=== PATIENT | male | born 1940 | race Caucasian/White ===

== ENCOUNTER 2019-10-02 14:35 | Outpatient (CLI) | payer MEDICARE, SELFPAY ==
--- NOTE | ~2019-10-02 | CT_ITS ---
EXAMINATION: CT abdomen wo con DATE: 10/02/2019 15:26 INDICATION: Trauma hernia without obstruction. TECHNIQUE: Computed tomography (CT) of the abdomen was performed without intravenous contrast. The do se-length product was 495.50 mGy-cm. Automated exposure control and iterative reconstruction techniqu e were employed. COMPARISON: None. FINDINGS: There are scattered peripheral interlobular septal thickening in the lung bases with areas of honeycombing in the left lower lobe, consistent with chronic fibrosis. Heart size normal. There is atherosclerosis of the aorta and coronary arteries. Small supraumbilical fat-containing hernia. Small fat-containing umbilical hernia. The liver, spleen, pancreas, adrenal glands and kidneys are unremarkable. No renal stones or hydronep hrosis. Gallbladder is present. There is severe lumbar spondylosis. There is anterior endplate compre ssion deformity of L1, likely chronic. IMPRESSION: 1. Fat-containing supraumbilical and umbilical ventral hernias. 2: Chronic pulmonary fibrosis in the lung bases. Reviewed, dictated and finalized at location A.
== END 2019-10-02 14:36 | disposition home or self-care (01) ==
PROVIDERS: PCP Family Medicine; Visit Provider Surgery
DX: K43.9 Ventral hernia without obstruction or gangrene (principal); K42.9 Umbilical hernia without obstruction or gangrene
CPT/HCPCS: 74150

== ENCOUNTER 2019-10-12 10:06 | Outpatient (CLI) | payer MEDICARE, SELFPAY ==
--- NOTE | 2019-10-12 10:07 | ECG_ITS ---
Measurements Intervals [place]son Rate: 59 P: 7 MS: 237 QRS: -18 QRSD: 82 T: -4 QT: 403 QTc: 400 Interpretive Statements SINUS BRADYCARDIA WITH FIRST DEGREE AV BLOCK LOW QRS VOLTAGE IN PRECORDIAL LEADS BORDERLINE R WAVE PROGRESSION, ANTERIOR LEADS CONSIDER INFERIOR INFARCT, AGE INDETERMINATE BASELINE ARTIFACT- I, II, III, AVR, AVL, AVF ABNORMAL ECG Electronically Signed On 10-12-2019 10:31:15 CDT by Nathanael Crouch D.O.
== END 2019-10-12 10:07 | disposition home or self-care (01) ==
LOC: ANHSURGERY 10:07
PROVIDERS: PCP Family Medicine; Visit Provider Surgery
DX: Z01.818 Encounter for other preprocedural examination (principal); R00.1 Bradycardia, unspecified; K43.9 Ventral hernia without obstruction or gangrene; E78.2 Mixed hyperlipidemia; I44.0 Atrioventricular block, first degree
CPT/HCPCS: 36415; 86850; 86900; 86901; 93005

== ENCOUNTER 2019-10-13 00:26 | Outpatient (CLI) | payer MEDICARE, SELFPAY ==
[2019-10-13 18:58] LABS: SARS-CoV-2 RNA PCR Negative
== END 2019-10-13 00:27 | disposition home or self-care (01) ==
LOC: ANHCOVIDDT 00:27
PROVIDERS: PCP Family Medicine; Visit Provider Surgery
DX: Z01.818 Encounter for other preprocedural examination (principal); Z11.59 Encounter for screening for other viral diseases
CPT/HCPCS: 87635; C9803; U0003

== ENCOUNTER 2019-10-15 00:49 | Day surgery (SDC) | payer MEDICARE, SELFPAY ==
[2019-10-09 08:36] VITALS: BMI 30.4
[2019-10-15] VITALS (9 sets, daily range): BP systolic 127–144; BP diastolic 63–75; PULSE 58–72; RESP 12–18; TEMP 36.1–36.5; O2SAT 93–100
--- NOTE | 2019-10-15 09:51 | WPDHPUPDATE1 ---
History and Physical Update Update Date/Time: 10/15/19 09:51 History and Physical has been reviewed, including an updated exam of the patient. There are NO changes in the patient's condition. Risks, benefits, and alternatives have been discussed and questions answered. Patient agrees to proceed with procedure.
[2019-10-15] MEDS: LACTATED RINGERS 1,000 ML 30 ML IV CONT ×2 (10:00→13:31)
--- NOTE | 2019-10-15 10:22 | WPDANESEPPF ---
Anes - Initial Pre Proc Eval Procedure: Operation Date: 10/15/19 11:00 Proposed Procedures p Robotic Assisted Ventral Hernia Repair with Mesh - Vanesa Aguilera MD Date/Time: 10/15/19 10:22 Surgeon: Vanesa Aguilera MD Pre Op Diagnosis: ventral hernia Patient Data Age: 79 Gender: M Height: 5 ft 8 in Weight: 90.9 kg Allergies Allergy/AdvReac Type Severity Reaction Status Date / Time cat dander Allergy Unknown runny nose Verified 09/30/19 08:39 Home Medications Medication Instructions Recorded Confirmed Type aspirin 325 mg tablet,delayed 325 mg PO HS 05/08/19 10/09/19 History release diclofenac sodium 75 mg 75 mg PO BID #180 tablet 08/13/19 10/09/19 Rx tablet,delayed release atorvastatin 10 mg PO HS 10/09/19 10/09/19 History garlic 500 mg PO DAILY 10/09/19 10/09/19 History multivitamin 1 tablet PO DAILY 10/09/19 10/09/19 History Patient hx anesthesia problems: none Family hx anesthesia problems: none PMFSH Past Medical History Medical History (Updated 10/15/19 @ 10:23 by Christopher Gaston MD) Neuropathy Surgical History Surgical History H/O colonoscopy H/O hernia repair inguinal hernia with mesh 2005 History of hip replacement right 2018 History of knee replacement right 2007 Family History Family History Father Diabetes mellitus Family history of cardiovascular disease Malignant neoplasm of prostate Heart disease Mother Family history of cardiovascular disease Other Family history of arthritis Social History Social History Smoking status: Current every day smoker Smoking end date: 05/06/70 Alcohol intake: current Anes - Eval Final PreProcedure Day of Procedure 10/15/19 10:22 Patient weight: obese Heart: regular rate and rhythm Lungs: decreased breath sounds Airway: Mallampati scale class II Neurological: other (alert) Last oral intake: >/= 8 hours ASA classification: III Emergent: no Anesthetic plan: proceed Anesthesia type and monitoring: general ETT and standard monitoring Informed Consent: The patient's anesthetic plan and its attendant risks and benefits were discussed with the patient/family/POA. Questions were solicited and answers provided to the satisfaction of the patient/family/POA.
[2019-10-15] MEDS: ceFAZolin 2 GM/D5W 50 ML 2 GM/50 ML BAG IVPB (11:00)
[2019-10-15] MEDS: BUPIVACAINE/EPINEPHRINE 0.5% 30 ML VIAL INFILTRATE (12:25)
--- NOTE | 2019-10-15 13:23 | PM.PROC ---
Procedure Note - Detailed Date of procedure: 10/15/19 Pre-op diagnosis: ventral hernia Supraumbilical ventral hernia, umbilical hernia Post-op diagnosis: same Procedure performed: robotic assisted repair of supraumbilical ventral hernia and umbilical hernia with 15 x 10 cm mesh in underlay position Description of procedure: The patient was taken the operating room placed in the supine position. After adequate induction of general anesthesia, the patient was prepped and draped in normal sterile fashion. A time-out was then done to verify the patient's identity as well as the procedure being performed. I began by making a 5 mm incision in the left upper quadrant. Through this, a Veress needle was placed into the peritoneal cavity and CO2 gas was insufflated. After adequate pneumoperitoneum was achieved, a 5 mm trocar was placed through this incision. I then placed the laparoscope through this trocar site and under direct visualization I placed a 8 mm port in the left mid abdomen as well as an additional 8 mm port in the left lower abdomen. I then moved the camera to the lower port and replaced the 5 mm port with a 12 mm airport. The robot was then docked to the 3 port sites. I then went to the robotic console. I began by identifying the hernias. A moderate-sized hernia was noted in the supraumbilical region and a smaller hernia was noted at the umbilicus. Using graspers, I was able to reduce both these hernias. Both hernias were noted to just contain preperitoneal fat. Once reduced, I closed both defects with 0 strata fix suture. I then placed a 15 x 10 cm symbotex mesh into the abdominal cavity. The Vicryl stitch was placed in the middle of the mesh and brought up centering the mesh over the defects. Once this was done, I used 2 0 V lock suture to circumferentially suture the mesh to the abdominal. Once the mesh was completely sutured in, I was happy with our tension-free repair. The mesh was noted to have good overlap of both the defects. At this point, the robot was undocked and all ports were removed. I then closed the 12 mm port site with an 0 Vicryl [id number] suture at the fascial level. All port sites were then closed with 4 O Monocryl subcuticular suture. The patient tolerated the procedure well, is extubated in the operating room postoperative, OB transferred to the recovery room in stable condition. Implants: 15 x 10 symbotex mesh Anesthesia: GETA Surgeon: Vanesa Aguilera MD Estimated blood loss (mL): 10 Drains: No Packing: No Pathology: none sent Complications: No immediate complications Condition: stable Disposition: PACU Findings: fat containing supraumbilical ventral hernia and fat containing umbilical hernia
--- NOTE | 2019-10-15 15:46 | SUR.PHASEII ---
PT'S UPDATED. IS EN ROUTE. PT HAVING MORE ABDOMINAL PAIN TO UPPER RIGHT ABDOMEN WHILE TRYING TO SIT UP TO GET DRESSED. AWAITING PAIN MED TO TAKE EFFECT.
--- NOTE | 2019-10-15 16:38 | SUR.PHASEII ---
PT ABLE TO TRANSFER TO WHEELCHAIR WITH MINIMAL ASSISTANCE. VOIDED X 1.
== END 2019-10-15 16:39 | disposition home or self-care (01) ==
PROVIDERS: PCP Family Medicine; Visit Provider Surgery
PROC: (CPT 49652; principal; 2019-10-15 11:00)
DX: K43.9 Ventral hernia without obstruction or gangrene (principal); K42.9 Umbilical hernia without obstruction or gangrene; E66.9 Obesity, unspecified; Z68.30 Body mass index [BMI] 30.0-30.9, adult; F17.200 Nicotine dependence, unspecified, uncomplicated; Z96.651 Presence of right artificial knee joint; Z96.641 Presence of right artificial hip joint
CPT/HCPCS: 49652 ×2; S2900; 36415; 86850; 86900; 86901; 87635; 93005; A9270; C1781; C9803; J0330; J0690; J1100; J1170; J2405; J2704; J2710; J3010; J7030; J7120; U0003

== ENCOUNTER → 2021-03-31 11:09 | Outpatient (CLI) | payer MEDICARE, SELFPAY ==
--- NOTE | ~2021-03-31 | XR_ITS ---
XR lumbar spine min 4V 03/31/2021 11:30 Indication: Low back pain Procedure: 5 views lumbar spine Comparison: Lumbar spine series 09/05/[address] dated 10/02/2019 Findings: There is a chronic mild wedge compression fracture of L1. There is advanced degenerative di sc disease at all lumbar levels. There is grade 1 degenerative spondylolisthesis at L4-5. There is fa cet hypertrophy at L3-4, L4-5 and L5-S1 . There is a right hip arthroplasty. There is mild levocurvat ure of the lumbar spine. Impression: 1: Severe lumbar spondylosis. 2: Chronic wedge compression deformity of L1. Reviewed, dictated and finalized at location A. FACTURING CLERK Impression: 1: Severe lumbar spondylosis. 2: Chronic wedge compression deformity of L1.
== END ==
PROVIDERS: PCP Family Medicine; Visit Provider Family Medicine
DX: M47.896 Other spondylosis, lumbar region (principal)
CPT/HCPCS: 72110

== ENCOUNTER → 2021-04-08 01:13 | Outpatient (CLI) | payer MEDICARE, SELFPAY ==
[2021-04-08 18:54] LABS: SARS-CoV-2 RNA PCR Negative
== END ==
PROVIDERS: PCP Family Medicine; Visit Provider Family Medicine
DX: R09.89 Other specified symptoms and signs involving the circulatory and respiratory systems (principal); R53.83 Other fatigue; R05.9 Cough, unspecified; Z20.822 Contact with and (suspected) exposure to COVID-19
CPT/HCPCS: C9803; U0003; U0005

== ENCOUNTER → 2021-05-01 15:31 | Outpatient (CLI) | payer MEDICARE, SELFPAY ==
--- NOTE | ~2021-05-01 | XR_ITS ---
XR chest 2V DATE: 05/01/2021 15:42 INDICATION: Cough. Chronic cough. Nonsmoker. TECHNIQUE: PA and lateral views COMPARISON: None FINDINGS: No pulmonary infiltrate or consolidation, pleural effusion or pulmonary vascular congestion or pneumothorax. Heart size is within normal range. Is aortic calcification and tortuosity. No hilar or mediastinal enlargement. There is osteopenia. There is degenerative spurring of the thoracic and lumbar spine. IMPRESSION: No active cardiopulmonary disease Reviewed, dictated and finalized at location A. GLE TRIMMER
== END ==
PROVIDERS: PCP Family Medicine; Visit Provider Family Medicine
DX: R05.9 Cough, unspecified (principal)
CPT/HCPCS: 71046

== ENCOUNTER → 2021-05-02 01:54 | Outpatient (CLI) | payer MEDICARE, SELFPAY ==
[2021-05-03 03:58] LABS: SARS-CoV-2 RNA PCR Negative
== END ==
PROVIDERS: PCP Family Medicine; Visit Provider Family Medicine
DX: R05.9 Cough, unspecified (principal); R09.89 Other specified symptoms and signs involving the circulatory and respiratory systems; Z20.822 Contact with and (suspected) exposure to COVID-19
CPT/HCPCS: C9803; U0003; U0005

== ENCOUNTER 2022-04-04 13:13 | Outpatient (CLI) | payer MEDICARE, SELFPAY ==
--- NOTE | ~2022-04-04 | XR_ITS ---
EXAM: XR abdomen/kub 1V DATE: 04/04/2022 13:38 HISTORY: f/u for off and on constipation and diarrhea . COMPARISON: 10/02/2019. FINDINGS: Bilateral small effusions versus chronic pleural parenchymal scarring. Mild bilateral scar /atelectasis and senescent versus and/or interstitial change. Normal bowel gas pattern. Hepatomegaly. No abnormal abdominal calcification. Degenerative changes in the lumbar spine and left hip. Partiall y visualized right hip arthroplasty. Surgical chandler overlie the left lower pelvis. IMPRESSION: No radiographic evidence of obstruction or ileus. Reviewed, dictated and finalized at location K. ICE SUPERVISOR
== END 2022-04-04 13:14 | disposition home or self-care (01) ==
PROVIDERS: PCP Family Medicine; Visit Provider Family Medicine
DX: R10.9 Unspecified abdominal pain (principal)
CPT/HCPCS: 74018

== ENCOUNTER → 2022-06-14 11:08 | Outpatient (CLI) | payer MEDICARE, SELFPAY ==
--- NOTE | ~2022-06-14 | XR_ITS ---
Left elbow Technique: AP and lateral views were obtained. Clinical History: Pain Findings: No acute fracture or dislocation is seen. Osseous alignment is anatomic. Joint spaces are p reserved. There is no displacement of the fat pads, and soft tissues are unremarkable. Impression: Unremarkable radiographs. Reviewed, dictated and finalized at location . GN ENGINEER Impression: Unremarkable radiographs.
--- NOTE | ~2022-06-14 | XR_ITS ---
Right Shoulder Technique: AP and axillary views were obtained. Clinical History: Pain Findings: No fracture or dislocation is seen. Osseous alignment is anatomic. Minimal degenerative sofía nges of the glenohumeral and AC joints are noted. Soft tissues are unremarkable. Impression: Minimal degenerative changes of the glenohumeral and AC joint. No fracture or dislocation. Reviewed, dictated and finalized at location . FOOD DOUGH MIXER Impression: Minimal degenerative changes of the glenohumeral and AC joint. No fracture or dislocation.
== END ==
PROVIDERS: PCP Family Medicine; Visit Provider Family Medicine
DX: M25.522 Pain in left elbow (principal); M25.511 Pain in right shoulder
CPT/HCPCS: 73030; 73070

== ENCOUNTER 2022-10-16 10:15 | Outpatient (CLI) | payer MEDICARE, SELFPAY ==
[2022-10-16 10:50] LABS: Kit Draw Collected
== END 2022-10-16 10:16 | disposition home or self-care (01) ==
LOC: ANHGOSHLAB 10:16
PROVIDERS: PCP Family Medicine; Visit Provider Family Medicine
DX: D64.9 Anemia, unspecified (principal)
CPT/HCPCS: 36415

== ENCOUNTER → 2023-01-01 14:00 | Outpatient (CLI) | payer MEDICARE, SELFPAY ==
--- NOTE | ~2023-01-01 | XR_ITS ---
XR chest 2V DATE: 01/01/2023 14:09 INDICATION: Shortness of breath TECHNIQUE: 2 views COMPARISON: 05/01/2021 PA and lateral chest FINDINGS: No pulmonary infiltrate or consolidation, pleural effusion or pulmonary vascular congestion or pneumothorax. Heart size is within upper limits of normal. No hilar or mediastinal enlargement. Osteopenia. Mild degenerative spurring of the thoracic spine. IMPRESSION: No active cardiac pulmonary disease or significant change since 05/01/2021 Reviewed, dictated and finalized at location L.
== END ==
PROVIDERS: PCP Family Medicine; Visit Provider Family Medicine
DX: R06.02 Shortness of breath (principal)
CPT/HCPCS: 71046

== ENCOUNTER 2023-01-25 14:34 | Outpatient (CLI) | payer MEDICARE, SELFPAY ==
--- NOTE | 2023-01-25 16:33 | WPDPFTINT ---
PFT Procedure Performed PFT Procedure Performed Spirometry with Pre/Post Bronchodilator Plethysmography (Lung Vol) Diffusing Cap (DLCO) Flow Vol Loop PFT Interpretation This is a pulmonary function test with pre and post-bronchodilator spirometry, plethysmography and diffusing capacity. The test was performed and results interpreted in accordance with the 2019 and 2005 ATS/ERS Task Force guidelines respectively using the Global Lung Function Initiative-2012 reference equations. Patient demonstrated good effort and cooperation. Reproducibility criteria were met. The quality of the pre bronchodilator spirometry maneuver was Grade A and post bronchodilator spirometry maneuver was Grade A. Findings: Spirometry: The contour the expiratory flow tracing resembles a witch's hat. The contour the inspiratory flow tracing is normal. The pre bronchodilator FVC is 2.75 L, 75% predicted. The pre bronchodilator FEV1 is 2.13 L, 79% predicted. The pre bronchodilator FEV1: FVC ratio 77%. The post bronchodilator FVC is 2.72 L, representing 1% decrease. The post bronchodilator FEV1 is 2.35 L, representing a 10% increase. The post bronchodilator FEV1: FVC ratio is 86%. Plethysmography: The total lung capacity is 4.54 L, 68% predicted. The functional residual capacity is 2.53 L, 70% predicted. The residual volume is 1.73 L, 68% predicted. Diffusing capacity: The diffusing capacity unadjusted for hemoglobin and carboxyhemoglobin is 13.3, 58% predicted. The diffusing capacity adjusted for alveolar volume is 3.08, 82% predicted. Impression: There is a mild restrictive ventilatory abnormality with a normal FEV1. The spirometry is normal without evidence of an obstructive abnormality. There is no significant improvement after inhaling a single dose of albuterol. The diffusing capacity unadjusted for hemoglobin and carboxyhemoglobin is moderately decreased and normalizes when adjusted for alveolar volume. There are no prior studies for comparison
== END 2023-01-25 14:35 | disposition home or self-care (01) ==
LOC: ANHPFT 14:35
PROVIDERS: PCP Family Medicine; Visit Provider Family Medicine
DX: R06.02 Shortness of breath (principal); R94.2 Abnormal results of pulmonary function studies
CPT/HCPCS: 94060; 94726; 94729

== ENCOUNTER → 2023-02-13 08:16 | Outpatient (CLI) | payer MEDICARE, SELFPAY ==
--- NOTE | ~2023-02-13 | XR_ITS ---
XR chest 2V 02/13/2023 08:26 Indication: Cough Procedure: 2 view chest Comparison: Comparison to multiple prior studies sequentially, with oldest reviewed study dated 04/06. Findings: Stable mild cardiomegaly. Mild peripheral interstitial infiltrates, unchanged. No acute foc al pneumonia, pleural effusion, edema or pneumothorax. Impression: 1: Chronic bilateral linear peripheral infiltrates, likely chronic interstitial lung disease. Reviewed, dictated and finalized at location B. Impression: 1: Chronic bilateral linear peripheral infiltrates, likely chronic interstitial lung disease.
== END ==
PROVIDERS: PCP Family Medicine; Visit Provider Nurse Practitioner Family
DX: R05.9 Cough, unspecified (principal); R06.02 Shortness of breath; R91.8 Other nonspecific abnormal finding of lung field
CPT/HCPCS: 71046

== ENCOUNTER 2023-02-26 12:45 | Outpatient (CLI) | payer MEDICARE, SELFPAY ==
--- NOTE | 2023-02-26 12:54 | ECHO_ITS ---
Patient Info Name: Duglas Ward Age: 83 years : 1940 Gender: Male Ht: 68 in Wt: 190 lbs BSA: 2.05 m2 HR: 64 bpm BP: 167 / 73 mmHg Heart Rhythm: Sinus Rhythm Technical Quality: Good Exam Date: 02/26/2023 1:10 PM Exam Location: [facility] Patient Status: Outpatient Admit Date: 02/26/2023 Staff Ordering Physician: Luz Marina Bear DO Peer Financial Counselor: Sekou Galindo RDCS Attending Provider: Luz Marina Bear DO Referring Physician: Marianela HERNÁNDEZ; Exam Type: CA echo doppler color flow Study Info Indications - sob Complete two-dimensional, color flow and Doppler transthoracic echocardiogram is performed. Summary 1. Complete two-dimensional, color flow and Doppler transthoracic echocardiogram is performed. 2. Left ventricular chamber dimension is normal. 3. Left ventricular systolic function is normal, estimated at 60-65%. 4. There is mild concentric increased left ventricular wall thickness. 5. The left ventricular diastolic function is grade I diastolic dysfunction. 6. E/e' 7 is not elevated. 7. Left atrial chamber dimension is mildly enlarged. 8. There is moderate aortic valve sclerosis. 9. There is mild to moderate aortic valve regurgitation. 10. There is mild mitral valve regurgitation. 11. There is mild tricuspid valve regurgitation. 12. No pulmonary hypertension, estimated pulmonary arterial systolic pressure is 39 mmHg. Left Ventricle E/e' 7 is not elevated. Left ventricular chamber dimension is normal. Left ventricular systolic function is normal, estimated at 60-65%. There is mild concentric increased left ventricular wall thickness. The left ventricular diastolic function is grade I diastolic dysfunction. Right Ventricle Right ventricular systolic function is normal and with normal TAPSE 2.3 cm. Right ventricular chamber dimension is normal. Left Atria Left atrial chamber dimension is mildly enlarged. Right Atria Right atrial chamber dimension is normal. Aortic Valve The aortic valve is trileaflet. There is moderate aortic valve sclerosis. There is no aortic valve stenosis. There is mild to moderate aortic valve regurgitation. Pulmonic Valve There is no pulmonic regurgitation. Mitral Valve There is no mitral valve stenosis. There is mild mitral valve regurgitation. Tricuspid Valve There is mild tricuspid valve regurgitation. No pulmonary hypertension, estimated pulmonary arterial systolic pressure is 39 mmHg. Pericardium/Pleural There is no pericardial effusion. Inferior Vena Cava Normal inferior vena cava with >50% collapse upon inspiration consistent with normal right atrial pressure, 5 mmHg. Aorta The aortic root size at the sinus of Valsalva is normal. Left Ventricular Outflow Tract Name Value Normal LVOT 2D LVOT Diameter 2.0 cm LVOT Doppler LVOT Peak Gradient 2 mmHg LVOT Mean Gradient 2 mmHg LVOT VTI 32 cm LVOT VTI/AV VTI Ratio 0.8 LVOT Stroke Volume 100 ml LVOT CO 3.6 l/min LVOT CI 1.8 l/min/m2 Pulmonic Valve --
== END 2023-02-26 12:46 | disposition home or self-care (01) ==
LOC: ANHCARD 12:45
PROVIDERS: PCP Family Medicine; Visit Provider Family Medicine
DX: R06.02 Shortness of breath (principal)
CPT/HCPCS: 93306

== ENCOUNTER 2024-09-08 13:26 | Outpatient (CLI) | payer MEDICARE, SELFPAY ==
--- NOTE | ~2024-09-08 | US_ITS ---
EXAMINATION: US art doppler w lawrence ROSAS DATE: 09/08/2024 14:10 INDICATION: Peripheral arterial occlusive disease TECHNIQUE: Segmental pressures and plethysmographic and Doppler waveforms of the brachial and lower e xtremity arteries were obtained. COMPARISON: None. FINDINGS: Right and left brachial artery pressures of 134 mm Hg and 136 mm Hg, respectively, are concordant (no rmal difference <= 30 mmHg). The right ankle-brachial index (CHERYL) is unable to be obtained due to inability to occlude the vessels at the right ankle (normal >= 0.9-1). The right great toe-brachial index (TBI) is 0.89 (normal >= 0. 6-0.8). Arterial waveforms are triphasic at the right common femoral artery and biphasic at the right popliteal and posterior tibial arteries with brisk systolic upstrokes throughout. The left CHERYL is is also unable be obtained due to inability to occlude the vessels at the left ankle. The left TBI is 0.92. Arterial waveforms are biphasic with brisk systolic upstrokes at the left comm on femoral, popliteal and posterior tibial arteries. IMPRESSION: 1. Normal TBI's bilaterally. No significant arterial occlusive disease. Reviewed, dictated and finalized at location A.
--- OUTSIDE RECORDS SUMMARY | 2024-09-08 13:32 | XMS_ITS | Clinical Summary ---
Author Organization [facility] Address [address] [place] [address] Care Team Providers Care Corporate Paralegal Name Role Phone Luz Marina Bear Primary Care Provider [phone] Allergies No known active allergies Medications atorvastatin (LIPITOR) 10 mg tablet Take 1 tablet (10 mg total) by mouth nightly 7 Active B.animalis,bifi d,infantis,long (PROBIOTIC 4X ORAL) Take 1 capsule by mouth every morning Active oxyCODONE (ROXICODONE) 5 mg immediate release tabletIndicatio ns:Pain Take 1 tablet (5 mg total) by mouth every 4 (four) hours as needed for pain 42 tablet 3 Active acetaminophen (TYLENOL) 500 mg tablet Take 2 tablets (1,000 mg total) by mouth every 8 (eight) hours 90 tablet 1 3 Active aspirin 81 mg enteric coated tabletIndicatio ns:prevention of thrombosis Take 1 tablet (81 mg total) by mouth 2 (two) times a day 60 tablet 3 Active senna-docusate (Senna-S) 8.6-50 mg Take 2 tablets by mouth 2 (two) times a day 80 tablet 1 3 Active traMADoL (ULTRAM) 50 mg tablet Take 1-2 tablets (50-100 mg total) by mouth every 8 (eight) hours as needed for pain 56 tablet [address] (VOLTAREN) 75 mg EC tablet Take 1 tablet (75 mg total) by mouth 2 (two) times a day 3 Active albuterol HFA (PROVENTIL HFA,VENTOLIN HFA,PROAIR HFA) 90 mcg/actuation inhaler INHALE 2 PUFFS EVERY 4 HOURS NEEDED FOR SHORTNESS OF BREATH OR FOR WHEEZE 3 Active budesonide-form oteroL (SYMBICORT) 80-4.5 mcg/actuation inhaler 3 Active clobetasoL (TEMOVATE) 0.05 % ointment APPLY 3 TIMES A DAY TO INVOLVED AREA AFTER 5 MINUTE TAP WATER SOAKS. 3 Active minocycline (MINOCIN,DYNACI N) 100 mg capsule TAKE ONE CAPSULE BY MOUTH TWICE DAILY FOR 14 DAYS 3 Active mupirocin (BACTROBAN) 2 % ointment APPLY TWICE A DAY TO INVOLVED AREA OF LEG UNTIL CLEAR 3 Active meloxicam (MOBIC) 7.5 mg tabletIndicatio ns:pseudogout Take 1 tablet (7.5 mg total) by mouth daily 30 tablet 2 3 Active meloxicam (MOBIC) 7.5 mg tablet Take 1 tablet (7.5 mg total) by mouth daily 30 tablet 2 3 Active gentamicin (GARAMYCIN) 0.1 % cream Apply topically daily 3 Active amoxicillin 500 mg tablet/capsule TAKE 4 PILL 1 HOUR BEFORE DENTAL APPOINTMENT. 12 tablet/capsul e 4 Active amoxicillin-cla vulanate (AUGMENTIN) 875-125 mg per tablet Take 1 tablet by mouth every 12 (twelve) hours for 10 days 4 Active clotrimazole-be tamethasone (LOTRISONE) cream Apply topically 2 (two) times a day 4 Active ibuprofen (ADVIL,MOTRIN) 800 mg tablet Take by mouth every 8 (eight) hours as needed 4 Active Active Problems Problem Noted Date Diagnosed Date Arthritis of left knee 09/03/2022 At risk for obstructive sleep apnea 08/24/2022 Primary osteoarthritis of left knee 06/26/2022 Overview (06/26/2022): Added automatically from request for surgery [id number] Change in bowel habits 08/07/2021 Assessment & Plan (10/10/2021 2:41 PM CDT): Continue fiber and use miralax as needed Assessment & Plan (08/07/2021 2:48 PM CDT): Hi fiber diet, miralax hs, sit on toilet after brkfst. Poop sheet, return 3 weeks, records from [facility] Primary osteoarthritis of right hip 10/25/2017 HTN (hypertension) 10/25/2017 LUMBEE (hard of hearing) 10/25/2017 HLD (hyperlipidemia) 10/25/2017 Surgical History Surgery Date Site/Laterality Comments TX ARTHROSCOPY KNEE DIAGNOST IC W/WO SYNOVIAL BX SPX Arthroscopy Knee Right - (Added by TW Conv) TX TONSILLECTOMY PRIMARY/SECONDARY <AGE 14 Tonsillectomy - (Added by TW Conv) BACK SURGERY Lower Back Surgery - (Added by TW Conv) TX ARTHRP KNE CONDYLE&PLATU MEDIAL&LAT COMPARTMENTS Total Knee Replacement Right - (Added by TW Conv) INGUINAL HERNIA REPAIR Inguinal Hernia Repair - (Added by TW Conv) REPLACEMENT TOTAL KNEE TOTAL HIP ARTHROPLASTY 10/25/2017 Right Medical History Medical History Date Comments HLD (hyperlipidemia) Hypertension Blindness Osteoarthritis LUMBEE (hard of hearing) Family History Medical History Relation Name Comments Heart disease Father Family history of cardiac disorder - (Added by TW Conv) Arthritis Mother Anesthesia problems Neg Hx Relation Name Status Comments Father Mother Social History Tobacco Use Types Packs/Day Years Used Date Smoking Tobacco: Former Cigarettes 0.5 10 1 957 - 1967 Smokeless Tobacco: Never Alcohol Use Standard Drinks/Week Comments Yes 7 (1 standard drink = 0.6 oz pur e alcohol) AUDIT-C Answer Date Recorded Q1: How often do you have a drink containing alc ohol? 2-4 times a month 09/03/2022 Average Number of Drinks Not on file 023 Frequency of Binge Drinking Not on file 05/2022 Personal Safety Answer Date Recorded Have you ever been in or are you currently in a harmful physical or emotional relationship or is someone making you feel afraid or unsafe? 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 Gender Identity Male 12/18/2022 10:44 AM CDT Sexual Orientation Straight 12/18/2022 10 :44 AM CDT Obstetrics History Last Filed Vital Signs Vital Sign Reading Time Taken Comments Blood Pressure 116/79 09/04/2022 8:15 AM CDT Pulse 55 09/04/2022 8:15 AM CDT Temperature 36.1 C (96.9 F) 09/04/2022 5:00 AM CDT Respiratory Rate 18 09/04/2022 8:15 AM CDT Oxygen Saturation 98% 09/04/2022 8:15 AM CDT Inhaled Oxygen Concentration - - Weight 85.1 kg (187 lb 9.6 oz) 09/03/2022 8:08 A M CDT Height 170.2 cm (5' 7 ) 09/03/2022 8:08 AM CDT Body Mass Index 29.38 09/03/2022 8:08 AM CDT Plan of Treatment Health Maintenance Due Date Last Done Comments Depression Screening 1942 DTaP/Tdap/Td Vaccine (1 - Tdap) 1953 Hepatitis B Screening 02/17/1960 Pneumococcal vaccine 65+ (1 of 1 - PCV) 02/17/1992 Well Visit 65+ 2007 Zoster Vaccine (2 of 2) 12/24/2018 10/29/2018 Fall Risk Assessment 09/05/2023 09/04/2022 Covid-19 Vaccine ( season) 2024 03/20/2021, 07/15/2020, 06/17/2020 Influenza Vaccine (Season Ended) 2025 03/11/2020, 01/08/2019, 01/02/2018 Abdominal Aortic Aneurysm (A AA) Screen Completed 07/08/2017 Medical Devices Implanted Type Area Manager Technical Training Device Identifier Shelf Expiration Date Model / Serial / Lot [employer] Simplex P Full Dose Radiopaque Preblend Cement Bone Tobramycin 6197-9-010 - [id number] - [id number] Implanted:Qty: 1 on 09/03/2022 by Tai Granados MD at [facility] Bone Cement Left: Knee [employer] 01/04/2024 6197-9-010 / [id number] 420 / [id number] [employer] Simplex P Full Dose Radiopaque Preblend Cement Bone Tobramycin 6197-9-010 - [id number] 20 - [id number] Implanted:Qty: 1 on 09/03/2022 by Tai Granados MD at [facility] Bone Cement Left: Knee [employer] 01/04/2024 6197-9-010 / [id number] 20 / [id number] [employer] Triathlon Cruciate Retaining Cemented Knee Left 5 Component 5510-F-501 - Sna - [id number] Implanted:Qty: 1 on 09/03/2022 by Tai Granados MD at [facility] Other - see comments Left: Knee [employer] [id number] 06/11/2027 5510-F-501 / NA / [id number] Description:Implant Pause pe rformed [employer] Triathlon Knee 6 [place] Baseplate Tibial Cocr 5521-B-600 - Sna - [id number] Implanted:Qty: 1 on 09/03/2022 by Tai Granados MD at [facility] Other - see comments Left: Knee [employer] [id number] 07/09/2027 5521-B-600 / NA / [id number] Description:Implant Pause pe rformed [employer] Insert Tibial Triathlon 6 H10mm Knee Bearing Condylar Stabilize Sterile 7198-Y-308-E - Sna - [id number] Implanted:Qty: 1 on 09/03/2022 by Tai Granados MD at [facility] Other - see comments [employer] [id number] 07/09/2027 4192-G-910-E / NA / [id number] Description:Implant Pause pe rformed [employer] [id number] Trilogy 56mm Primary Cluster Hole Hip Shell Acetabular Tivanium - [id number] Implanted:Qty: 1 on 10/25/2017 by Silvio Valles MD at [facility] Right: Hip [employer] 06/05/2027 [id number] / / [id number] [employer] [id number] Trilogy 6.5mm 40mm Self Tap Hip Acetabular Cortical Screw Bone - [id number] Implanted:Qty: 1 on 10/25/2017 by Silvio Valles MD at [facility] Right: Hip [employer] 10/04/2027 [id number] / / [id number] [employer] [id number] Trilogy 6.5mm 30mm Self Tap Acetabular Cortical Screw Bone - [id number] Implanted:Qty: 1 on 10/25/2017 by Silvoi Valles MD at [facility] Right: Hip [employer] 08/04/2027 [id number] / / [id number] [employer] [id number] Trilogy 56mm 32mm 6.4mm Primary Modular Cup Liner Hip Standard - [id number] Implanted:Qty: 1 on 10/25/2017 by Silvio Valles MD at [facility] Right: Hip [employer] 08/03/2022 [id number] / / [id number] [employer] [id number] Taperloc 140mm 34.3mm Press Fit Reduce Hip 133d 10 Standard - [id number] Implanted:Qty: 1 on 10/25/2017 by Silvio Valles MD at [facility] Right: Hip [employer] 05/03/2027 [id number] / / [id number] [employer] [id number] 32mm Modular Hip Standard Head Femoral Biolox Delta - [id number] Implanted:Qty: 1 on 10/25/2017 by Silvio Valles MD at [facility] Right: Hip [employer] 08/07/2026 [id number] / / [id number] Explanted Type Area Manager Technical Training Device Identifier Shelf Expiration Date Model / Serial / Lot [employer] 4mm 110mm Pin Fixation Sterile 271208 - Sna - [id number] Explanted:Qty: 1 on 09/03/2022 by Mati Bueno MD at [facility] Other - see comments Left: Knee [employer] [id number] 06/04/2027 [id number] / NA / [id number] Description:For fixation pur poses only, not intended for implant [employer] 4mm 140mm Knee Straight Pin Fixation Sterile [id number] - Sna - [id number] Explanted:Qty: 1 on 09/03/2022 by Mati Bueno MD at [facility] Other - see comments Left: Knee [employer] [id number] 06/20/2027 [id number] / NA / [id number] Description:For fixation pur poses only, not intended for implant Procedures Procedure Name Priority Date/Time Associated Diagnosis Comments CT ABDOMEN PELVIS W CONTRAST Routine 07/08/2017 5:37 PM 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 FINAL REPORT The radiology attending physician has personally reviewed this study, and has reviewed and/or edited this written report and agrees with it. ACC# Date Time Exam [id number] Jul 08, 2017 11:37:[id number] Abd & Pelvis with cont EXAMINATION: Computed tomography of the abdomen and pelvis with intravenous contrast HISTORY: Abdominal pain and bloating TECHNIQUE: Transaxial computed tomographic images of the abdomen and pelvis were obtained with intravenous contrast according to the standard protocol after the uneventful administration of approximately 100 mL Opti-Ray 350 intravenous contrast. COMPARISON: No comparison FINDINGS: Lung bases are clear. No focal liver lesions are seen. Spleen, pancreas, adrenals, kidneys, and gallbladder are normal. Atherosclerotic disease is seen throughout the aorta which is normal in caliber. Surgical clips are seen in the left lower quadrant. No retroperitoneal or mesenteric lymphadenopathy. There is diverticulosis without evidence of diverticulitis. Mild stranding is seen surrounding the tip of the appendix, which may represent a mild appendicitis. No evidence of perforation. Urinary bladder is normal. No free fluid in the pelvis. Bone windows show severe right hip osteoarthritis with articular collapse of the right femoral head. Subtle cortical defect within a subchondral cyst seen best on image 62, series 4, may represent underlying fracture. Severe multilevel degenerative disc disease is also seen of the lumbar spine. IMPRESSION: 1. Mild thickening of the tip of the appendix with surrounding fluid may represent mild tip appendicitis. Recommend correlation with physical examination. No evidence of perforation or periappendiceal abscess. 2. Severe right hip osteoarthritis with associated articular collapse of the right femoral head. Subtle cortical defect within the a subchondral cyst in the right acetabulum may represent a fracture. Recommend correlation with physical exam. The above findings were communicated to Dr. Nunes by Dr. Deep Bradley M.D. on 07/08/2017 1:00 PM. Electronically signed by: Mago Lehman M.D. Requested By: QUOC NUNES M.D. Dictated By: DEEP BRADLEY M.D. on Jul 08 2017 1:16P This document has been electronically signed by: MAGO LEHMAN M.D. on Jul 08 2017 3:38P [id number] KNOX M.D. FINAL REPORT The radiology attending physician has personally reviewed this study, and has reviewed and/or edited this written report and agrees with it. Attending: QUOC NUNES Requesting: QUOC NUNES Requesting Fax: Attending Fax: Attending ID: [id number] Requesting ID: [id number] Report To 1 ID: [id number] Report To 1 Name: , Report To 1 FAX: NextGen Order #: Procedure Note Miscellaneous, Not In File - 07/08/2017 Julita KNOX M.D. FINAL REPORT The radiology attending physician has personally reviewed this study, and has reviewed and/or edited this written report and agrees with it. ACC# Date Time Exam [id number] Jul 08, 2017 11:37:[id number] Abd & Pelvis with cont EXAMINATION: Computed tomography of the abdomen and pelvis with intravenous contrast HISTORY: Abdominal pain and bloating TECHNIQUE: Transaxial computed tomographic images of the abdomen and pelvis were obtained with intravenous contrast according to the standard protocol after the uneventful administration of approximately 100 mL Opti-Ray 350 intravenous contrast. COMPARISON: No comparison FINDINGS: Lung bases are clear. No focal liver lesions are seen. Spleen, pancreas, adrenals, kidneys, and gallbladder are normal. Atherosclerotic disease is seen throughout the aorta which is normal in caliber. Surgical clips are seen in the left lower quadrant. No retroperitoneal or mesenteric lymphadenopathy. There is diverticulosis without evidence of diverticulitis. Mild stranding is seen surrounding the tip of the appendix, which may represent a mild appendicitis. No evidence of perforation. Urinary bladder is normal. No free fluid in the pelvis. Bone windows show severe right hip osteoarthritis with articular collapse of the right femoral head. Subtle cortical defect within a subchondral cyst seen best on image 62, series 4, may represent underlying fracture. Severe multilevel degenerative disc disease is also seen of the lumbar spine. IMPRESSION: 1. Mild thickening of the tip of the appendix with surrounding fluid may represent mild tip appendicitis. Recommend correlation with physical examination. No evidence of perforation or periappendiceal abscess. 2. Severe right hip osteoarthritis with associated articular collapse of the right femoral head. Subtle cortical defect within the a subchondral cyst in the right acetabulum may represent a fracture. Recommend correlation with physical exam. The above findings were communicated to Dr. Nunes by Dr. Deep Bradley M.D. on 07/08/2017 1:00 PM. Electronically signed by: Mago Lehman M.D. Requested By: QUOC NUNES M.D. Dictated By: DEEP BRADLEY M.D. on Jul 08 2017 1:16P This document has been electronically signed by: MAGO LEHMAN M.D. on Jul 08 2017 3:38P [id number] KNOX M.D. FINAL REPORT The radiology attending physician has personally reviewed this study, and has reviewed and/or edited this written report and agrees with it. Attending: QUOC NUNES Requesting: QUOC NUNES Requesting Fax: Attending Fax: Attending ID: [id number] Requesting ID: [id number] Report To 1 ID: [id number] Report To 1 Name: , Report To 1 FAX: NextGen Order #: Quoc Nunes MD IMG CT PROCEDURES Fin al Result from Last 3 Months or Most Recently Relevant to Health Maintenance Insurance UHC MEDICARE ADVANTAGE MEDICARE [facility] Address: [address] [address] [place] [address] [employer] MEDICARE [facility] MEDICARE [facility] Advance Directives For more information, please contact: [phone] * Full Code (Latest Code Status on File) Date Activated Date Inactivated Comments 09/03/2022 1:32 PM 09/04/2022 3:03 PM * Full Code Date Activated Date Inactivated Comments 10/25/2017 11:44 AM 10/27/2017 1:39 PM Care Teams Corporate Paralegal Relationship Specialty Start Date End Date Luz Marina Bear DO PCP - General 12/04/21
--- OUTSIDE RECORDS SUMMARY | 2024-09-08 13:33 | XMS_ITS | Clinical Summary ---
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
--- OUTSIDE RECORDS SUMMARY | 2024-09-08 13:33 | XMS_ITS | Referral Summary ---
Author Organization [facility] Address [address] [place] [address] Care Team Providers Care Residential Housekeeper Name Role Phone ZomarianLuz Marina romero Primary Care Provider [phone] Allergies No known active allergies Medications atorvastatin [...] (06/26/2022): Added automatically from request for surgery [id number] Change in bowel habits 08/07/2021 Assessment & Plan (10/10/2021 2:41 PM CDT): Continue fiber and use miralax as needed Assessment & Plan (08/07/2021 2:48 PM CDT): Hi fiber diet, miralax hs, sit on toilet after brkfst. Poop sheet, return 3 weeks, records from [place] Primary osteoarthritis of right hip 10/25/2017 HTN (hypertension) 10/25/2017 KOBUK (hard of hearing) 10/25/2017 HLD (hyperlipidemia) 10/25/2017 Social History Tobacco Use Types Packs/Day Years Used Date Smoking Tobacco: Former Cigarettes 0.5 10 1 957 - 1966 Smokeless Tobacco: Never Alcohol Use Standard Drinks/Week [...] on file Legal Sex Male 6:49 PM DESIGN PROJECT MANAGER Gender Identity Male 12/18/2022 10:44 AM CDT Sexual Orientation Straight 12/18/2022 10 :44 AM CDT Last Filed Vital Signs Vital Sign Reading [...] 09/03/2022 8:08 AM CDT Plan of Treatment Not on file Medical Devices Implanted Type Area [employer] Superintendent Device Identifier Shelf Expiration Date Model / Serial / Lot [employer] Simplex P Full Dose Radiopaque Preblend Cement Bone Tobramycin 6197-9-010 - [id number] - [id number] Implanted:Qty: 1 on 09/03/2022 by Tai Granados MD at [facility] Bone Cement Left: Knee [employer] 01/04/2024 6197-9-010 / [id number] / [id number] [employer] Simplex P Full Dose Radiopaque Preblend Cement Bone Tobramycin 6197-9-010 - [id number] 20 - [id number] Implanted:Qty: 1 on 09/03/2022 by Tai Granados MD at [facility] Bone Cement Left: Knee [employer] 01/04/2024 6197-9-010 / [id number] 20 / [id number] [employer] Triathlon Cruciate Retaining Cemented Knee Left 5 Component 5510-F-501 - Sna - [id number] Implanted:Qty: 1 on 09/03/2022 by Tai Granados MD at [facility] Other - see comments Left: Knee [employer] [id number] 06/11/2027 5510-F-501 / NA / [id number] Description:Implant Pause pe rformed [employer] Triathlon Knee 6 [place] Baseplate Tibial Cocr 5521-B-600 - Sna - [id number] Implanted:Qty: 1 on 09/03/2022 by Tai Granados MD at [facility] Other - see comments Left: Knee [employer] [id number] 07/09/2027 5521-B-600 / NA / [id number] Description:Implant Pause pe rformed [employer] Insert Tibial Triathlon 6 H10mm Knee Bearing Condylar Stabilize Sterile 9880-N-388-E - Sna - [id number] Implanted:Qty: 1 on 09/03/2022 by Tai Granados MD at [facility] Other - see comments [employer] [id number] 07/09/2027 2833-C-878-E / NA / [id number] Description:Implant Pause pe rformed [employer] [id number] Trilogy 56mm Primary Cluster Hole Hip Shell Acetabular Tivanium - [id number] Implanted:Qty: 1 on 10/25/2017 by Silvio Valles MD at [facility] Right: Hip [employer] 06/05/2027 [id number] / / [id number] [employer] [id number] Trilogy 6.5mm 40mm Self Tap Hip Acetabular Cortical Screw Bone - [id number] Implanted:Qty: 1 on 10/25/2017 by Silvio Valles MD at [facility] Right: Hip [employer] 10/04/2027 [id number] / / [id number] [employer] [id number] Trilogy 6.5mm 30mm Self Tap Acetabular Cortical Screw Bone - [id number] Implanted:Qty: 1 on 10/25/2017 by Silvio Valles MD at [facility] Right: Hip [employer] 08/04/2027 [id number] / / [id number] [employer] [id number] Trilogy 56mm 32mm 6.4mm Primary Modular Cup Liner Hip Standard - [id number] Implanted:Qty: 1 on 10/25/2017 by Silvio Valles MD at [facility] Right: Hip [employer] 08/03/2022 [id number] / / [id number] [employer] [id number] [place]aperloc 140mm 34.3mm Press Fit Reduce Hip 133d 10 Standard - [id number] Implanted:Qty: 1 on 10/25/2017 by Silvio Valles MD at [facility] Right: Hip [employer] 05/03/2027 [id number] / / [id number] [employer] [id number] 32mm Modular Hip Standard Head Femoral Biolox Delta - [id number] Implanted:Qty: 1 on 10/25/2017 by Silvio Valles MD at [facility] Right: Hip [employer] 08/07/2026135430 / / [id number] Explanted Type Area [employer]er Systems Superintendent Device Identifier Shelf Expiration Date Model / Serial / Lot [employer] 4mm 110mm Pin Fixation Sterile [id number] - Sna - [id number] Explanted:Qty: 1 on 09/03/2022 by Mati Bueno MD at [facility] Other - see comments Left: Knee [employer] [id number] 06/04/2027 [id number] / NA / [id number] Description:For fixation pur poses only, not intended for implant [employer] 4mm 140mm Knee Straight Pin Fixation Sterile [id number] - Sna - [id number] Explanted:Qty: 1 on 09/03/2022 by Mati Bueno MD at [facility] Other - see comments Left: Knee [employer] [id number] 06/20/2027 454844 / NA / [id number] Description:For fixation pur poses only, not intended for implant Procedures Procedure Name Priority Date/Time Associated Diagnosis Comments CT ABDOMEN PELVIS W CONTRAST Routine 07/08/2017 5:37 PM DESIGN PROJECT MANAGER from Last 3 Months or Most Recently Relevant to Health Maintenance Results * CT Abdomen Pelvis W Contrast (07/08/2017 5:37 PM DESIGN PROJECT MANAGER) Anatomical Region Laterality Modality Body N/A Computed Tomogra phy 07/08/2017 5:37 PM DESIGN PROJECT MANAGER Narrative 07/08/2017 9:40 PM DESIGN PROJECT MANAGER ALEXX LEHMAN M.D. FIFI BRADLEY M.D. FINAL REPORT The radiology attending physician has personally reviewed this study, and has reviewed and/or edited this written report and agrees with it. ACC# Date Time Exam [id number] Jul 08, 2017 11:37:[id number] Abd & Pelvis with cont EXAMINATION: [...] were communicated to Dr. Nunes by Dr. Fifi Bradley M.D. on 07/08/2017 1:00 PM. Electronically signed by: Alexx Lehman M.D. Requested By: MOISES NUNES M.D. Dictated By: FIFI BRADLEY M.D. on Jul 08 2017 1:16P This document has been electronically signed by: ALEXX LEHMAN M.D. on Jul 08 2017 3:38P [id number] KNOX M.D. FINAL REPORT The radiology attending physician has personally reviewed this study, and has reviewed and/or edited this written report and agrees with it. Attending: MOISES NUNES Requesting: MOISES NUNES Requesting Fax: Attending Fax: Attending ID: [id number] Requesting ID: [id number] Report To 1 ID: [id number] Report To 1 Name: , Report To 1 FAX: NextGen Order #: Procedure Note Miscellaneous, Not In File - 07/08/2017 ALEXX LEHMAN M.D. FIFI BRADLEY M.D. FINAL REPORT The radiology attending physician has personally reviewed this study, and has reviewed and/or edited this written report and agrees with it. ACC# Date Time Exam [id number] Jul 08, 2017 11:37:[id number] Abd & Pelvis with cont EXAMINATION: [...] were communicated to Dr. Nunes by Dr. Fifi Bradley M.D. on 07/08/2017 1:00 PM. Electronically signed by: Alexx Lehman M.D. Requested By: MOISES NUNES M.D. Dictated By: FIFI BRADLEY M.D. on Jul 08 2017 1:16P This document has been electronically signed by: ALEXX LEHMAN M.D. on Jul 08 2017 3:38P [id number] KNOX M.D. FINAL REPORT The radiology attending physician has personally reviewed this study, and has reviewed and/or edited this written report and agrees with it. Attending: MOISES NUNES Requesting: MOISES NUNES Requesting Fax: Attending Fax: Attending ID: [id number] Requesting ID: [id number] Report To 1 ID: [id number] Report To 1 Name: , Report To 1 FAX: NextGen Order #: Moises Nunes MD IMG CT PROCEDURES Fin al Result from Last 3 Months or Most Recently Relevant to Health Maintenance Insurance [place] [employer] MEDICARE [facility] MEDICARE Advance Directives For more information, please contact: [phone] * Full Code (Latest Code Status on File) Date Activated Date Inactivated Comments 09/03/2022 1:32 PM 09/04/2022 3:03 PM * Full Code Date Activated Date Inactivated Comments 10/25/2017 11:44 AM 10/27/2017 1:39 PM Care Teams Residential Housekeeper Relationship Specialty Start Date End Date Luz Marina Bear DO PCP - General 12/04/21
--- OUTSIDE RECORDS SUMMARY | 2024-09-08 13:33 | XMS_ITS | Clinical Summary ---
Author Organization [facility] Address [address] [place] [address] Care Team Providers Care Evp Sales Name Role Phone Luz Marina Bear DO Primary Care Provider [phone] Medications gentamicin (GARAMYCIN) 0.1 % cream Apply topically daily. 30 g 2 3 Active clotrimazole-be tamethasone (LOTRISONE) cream Apply topically 2 (two) times daily. 15 g 4 Active ketoconazole (NIZORAL) 2 % cream Apply topically daily. To area on back 30 g 5 Active clotrimazole-be tamethasone (LOTRISONE) cream Apply topically daily. 30 g 2 5 Active Encounters Date Type Department Care Team Description 07/16/2024 1:54 PM CDT - 07/16/2024 11:59 PM CDT Hospital Encounter [facility] [place] [address] Yadira Cantrell, MILO Discharge Disposition: Home or Self Care (Routine Discharge) 07/16/2024 Travel 07/08/2024 8:45 AM PROSTHETICS ASSISTANT - 07/08/2024 11:59 PM PROSTHETICS ASSISTANT Hospital Encounter [facility] [place] [address] Yadira Cantrell NP Discharge Disposition: Home or Self Care (Routine Discharge) 07/08/2024 Travel 07/01/2024 10:27 AM PROSTHETICS ASSISTANT - 07/01/2024 11:59 PM PROSTHETICS ASSISTANT Hospital En[facility] [place] [address] Yadira Cantrell, MILO Discharge Disposition: Home or Self Care (Routine Discharge) 07/01/2024 Travel 06/24/2024 3:35 PM PROSTHETICS ASSISTANT - 06/24/2024 11:59 PM PROSTHETICS ASSISTANT Hospital Encounter [facility] [place] [address] Yadira Cantrell, MILO Discharge Disposition: Home or Self Care (Routine Discharge) 06/24/2024 9:17 AM PROSTHETICS ASSISTANT - 06/24/2024 3:34 PM PROSTHETICS ASSISTANT Hospital [facility] [place] [address] Yadira Cantrell, MILO Discharge Disposition: Home or Self Care (Routine Discharge) 06/24/2024 Travel from Last 3 Months Social History Tobacco Use Types Packs/Day Years Used Date Smoking Tobacco: Never Assessed Sex and Gender Information Value Date Recorded Sex Assigned at Male 06/24/2024 10:24 AM PROSTHETICS ASSISTANT Legal Sex Male 10:03 PM PROSTHETICS ASSISTANT Gender Identity Not on file Sexual Orientation Not on file Plan of Treatment Health Maintenance Due Date Last Done Comments DTaP, Tdap and Td Vaccines ( 1 - Tdap) 1961 Pneumococcal Vaccine: 50+ Years (1 of 1 - PCV) 02/17/1992 Annual Medicare Wellness Visit 2007 RSV Immunization or 60+ Years (1 - 1-dose 75+ series) 2017 Zoster Vaccines (2 of 2) 12/24/2018 10/29/2018 COVID-19 Vaccine ( - 2023-2 5 season) 2024 03/20/2021, 07/15/2020, 06/17/2020 Meningococcal B Vaccine Aged Out No l onger eligible based on patient's age to complete this topic Meningococcal Vaccine Aged Out No td susanne eligible based on patient's age to complete this topic RSV Immunizations Under 20 Months Aged Out No longer eligible b ased on patient's age to complete this topic Procedures Procedure Name Priority Date/Time Associated Diagnosis Comments CULTURE, WOUND, W/GRAM STAIN Routine 06/24/2024 10:10 AM PROSTHETICS ASSISTANT 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) from Last 3 Months Results * CULTURE, WOUND, W/GRAM STAIN (06/24/2024 10:10 AM PROSTHETICS ASSISTANT) SPEC DESCRIPTION BACK 06/24/2024 3:36 PM PROSTHETICS ASSISTANT [facility] SPECIAL REQUESTS NO SPECIAL REQUEST 06/24/2024 3:36 PM PROSTHETICS ASSISTANT [facility] GRAM STAIN RESULT NO WHITE BLOOD CELLS SEEN 06/25/2024 7:25 AM PROSTHETICS ASSISTANT [facility] GRAM STAIN RESULT NO ORGANISMS SEEN 06/25/2024 7:25 AM PROSTHETICS ASSISTANT [facility] CULTURE RESULT NO GROWTH 3 DAYS 06/27/2024 9:09 AM PROSTHETICS ASSISTANT [facility] SPECIMEN FROM TRUNK / Unknown 06/24/2024 10:10 AM PROSTHETICS ASSISTANT 06/24/2024 3:37 PM PROSTHETICS ASSISTANT Yadira Cantrell NP MICROBIOLOGY - GENERAL OR DERABLES Final Result [facility] [address] [place] [address], from Last 3 Months Insurance [employer] Care Teams Evp Sales Relationship Specialty Start Date End Date Luz Marina Bear DO [address] [place] [address] PCP - General FAMILY PRACTICE 04/02/23
== END 2024-09-08 13:27 | disposition home or self-care (01) ==
LOC: CHSIMG 13:29
PROVIDERS: PCP Family Medicine; Visit Provider Podiatrist Foot & Ankle Surgery
DX: I73.9 Peripheral vascular disease, unspecified (principal)
CPT/HCPCS: 93923